=== PATIENT | male | born 1960 ===

== ENCOUNTER 2018-03-01 19:28 | Emergency (ER) | payer SELFPAY ==
[2018-03-01 20:00] VITALS: BP 156/74; PULSE 58; RESP 20; TEMP 98.7; O2SAT 98
--- NOTE | 2018-03-01 22:15 | C.PDOC ---
History Of Present Illness 57 y/o male presents to the ED complaining of right knee pain for 1 year, worsened over the past few days. Patient denies any fall or blunt trauma. He denies any numbness, tingling, or focal weakness. Reports increased pain when ambulating over the past 2 days. Time Seen by Provider: 03/01/18 20:39 Chief Complaint (Nursing): Lower Extremity Problem/Injury History Per: Patient History/Exam Limitations: no limitations Onset/Duration Of Symptoms: Days Current Symptoms Are (Timing): Still Present Past Medical History Reviewed: Historical Data, Nursing Documentation, Vital Signs Vital Signs: Last Vital Signs Temp 98.7 F 03/01/18 19:57 Pulse 58 L 03/01/18 19:57 Resp 20 03/01/18 19:57 BP 156/74 H 03/01/18 19:57 Pulse Ox 98 03/01/18 19:57 Family History: States: No Known Family Hx - Social History Hx Alcohol Use: No Hx Substance Use: No Review Of Systems Musculoskeletal: Positive for: Leg Pain Neurological: Negative for: Weakness, Numbness, Incoordination Physical Exam - Physical Exam Appears: Well, Non-toxic, No Acute Distress Skin: Warm, Dry, No Rash Extremity: Tenderness (to the medial aspect of right knee), No Calf Tenderness, Capillary Refill (less than 2 sec), No Deformity, No Swelling, Other (No increased warmth, erythema, or open wounds) Pulses: Left Dorsalis Pedis: Normal, Right Dorsalis Pedis: Normal Neurological/Psych: Oriented x3, Normal Speech, Normal Motor, Normal Sensation ED Course And Treatment O2 Sat by Pulse Oximetry: 98 (RA) Pulse Ox Interpretation: Normal - Other Rad XR right knee X-Ray: Interpreted by Me, Viewed By Me Interpretation: No acute fx, no dislocation Progress Note: X-ray taken of right knee. Patient informed of results. Knee brace applied to right knee. Patient counseled regarding diagnosis and advised to follow up with orthopedist for further management. Disposition - Disposition Referrals: [facility] [Outside] Disposition: HOME/ ROUTINE Disposition Time: 22:21 Condition: STABLE Additional Instructions: Follow up with Ortho clinic within 2-3 days. Return to ED if feel worse. 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 - Scribe Statement The provider has reviewed the documentation as recorded by the Scribe (Preeti Maldonado) All medical record entries made by the Scribe were at my direction and personally dictated by me. I have reviewed the chart and agree that the record accurately reflects my personal performance of the history, physical exam, medical decision making, and the department course for this patient. I have also personally directed, reviewed, and agree with the discharge instructions and disposition.
--- NOTE | 2018-03-02 09:05 | RAD ---
Date of service: 03/01/2018 PROCEDURE: Right Knee Radiographs. HISTORY: pain COMPARISON: None. FINDINGS: BONES: No evidence of acute displaced fracture nor dislocation. The osseous structures appear intact. JOINTS: There appears to be some very minor medial joint space narrowing. Small posterior patellar osteophyte formation.. JOINT EFFUSION: Small suprapatellar joint effusion.. OTHER FINDINGS: None. IMPRESSION: No evidence of acute displaced fracture nor dislocation. Minor DJD. Small suprapatellar joint effusion.
== END 2018-03-01 22:25 | disposition home or self-care (01) ==
LOC: C.ER 19:28
DX: M25.561 Pain in right knee (principal)